=== PATIENT | male | born 1995 | race Asian ===

== ENCOUNTER 2017-06-10 12:44 | Emergency (ER) | payer BC ==
[2017-06-10 16:13] LABS: Hematocrit 45 % (42-52); Hemoglobin 15.7 g/dl (14.0-18.0); Mean Corpuscular HGB Conc 35 g/dl (31-36); Mean Corpuscular Hemoglobin 31 pg (27-31); Mean Corpuscular Volume 89 fL (80-94); Mean Platelet Volume 8 um3 (7.4-10.4); Red Blood Count 5.11 10^6/ul (4.0-5.4); Red Cell Distribution Width 13 % (10.5-15); White Blood Count 6.2 10^3/ul (3.5-10.8)
[2017-06-10 16:29] LABS: ALT 19 U/L (7-52); AST 20 U/L (13-39); Albumin 4.7 g/dL (3.2-5.2); Alkaline Phosphatase 43 U/L (34-104); Anion Gap 10 mmol/L (2-11); BUN/Creatinine Ratio 11.3 (8-20); Blood Urea Nitrogen 11 mg/dL (6-24); CO2 Carbon Dioxide 24 mmol/L (22-32); Calcium 9.7 mg/dL (8.6-10.3); Chloride 102 mmol/L (101-111); EGFR African American 123.3 (>60); EGFR Non-African American 95.9 (>60); Glucose 101 mg/dL (70-100); Potassium 3.7 mmol/L (3.5-5.0); Sodium 136 mmol/L (133-145); Total Protein 7.7 g/dL (6.4-8.9)
[2017-06-10 16:42] LABS: Urine Bilirubin Negative (Negative); Urine Glucose Negative (Negative); Urine Nitrite Negative (Negative)
[2017-06-10 16:46] LABS: Acetaminophen < 15 mcg/mL; Alcohol < 10 mg/dL (<10); Salicylate < 2.50 mg/dL (<30)
--- NOTE | 2017-06-10 16:48 | ED ---
Narda Jaramillo Edward, scribed for Ramila Willis MD on 06/10/17 at 1407 . Psychiatric Complaint - HPI Summary HPI Summary: 21 y/o male presents to ED c/o gradual onset, acute on chronic increased trouble concentrating for the past 3-4 days. Pt states it is hard to pay attention when he goes to class and has trouble writing. He states he is just not studying. Pt drove from [place] to [place] before the start of school, which was a cause for recent stress. Pts father states he has been kind of weird since arriving to [place] for the past few days. Denies SI, HI, hearing voices, and visual hallucinations. Denies physical complaints. In the ED course , the pt hesitates before answering questions; there are long pauses between question and answer. Pts father states that the pt has had church issues; when prompted, the pt mentions a saint that was grilled over a fire. The pt lives with his father in a home here at [place]. The patient is a sophomore at [employer] with a PMHx schizophrenia. Dr. Millard ([place]) has prescribed his medication for more than the past 6 months. Pt has an appointment on with Regina Engle NP (psychiatrist). PMHx glaucoma takes drops once daily ( Xalatan). FHx father with glaucoma. Pt takes Wellbutrin 300 mg once per day. Pt takes Respridol 2 mg at night, 0.5 mg in the morning. Pt has recently been taking vitamin supplements unspecified. NKDA. Occasional EtOH use. Non smoker. Used marijuana in the past. - History Of Current Complaint Chief Complaint: EDMentalHealth Hx Obtained From: Patient, Family/Admin Secretary - Father Onset/Duration: Gradual Onset, Lasting Days Timing: Intermittent Episode Lasting - When he studies Severity Initially: Moderate Severity Currently: Moderate Aggravating Factor(s): Recent Stress - Drive from [place] to [place] Alleviating Factor(s): Nothing Associated Signs And Symptoms: Negative: Hallucinating Related History: Positive For: Prior Psychiatric Issues - PMHx schizophrenia Has Suicidal: Denies: Thoughts Has Homicidal: Denies: Thoughts - Allergies/Home Medications Allergies/Adverse Reactions: Allergies Allergy/AdvReac Type Severity Reaction Status Date / Time No Known Allergies Allergy Verified 04/10/13 18:29 Home Medications: Home Medications Risperidone [Risperdal M-Tab-] 0.5 mg PO QAM 06/10/17 [History Confirmed ] Risperidone [Risperdal] 2 mg PO BEDTIME 06/10/17 [History Confirmed 06/10/17] buPROPion TAB* [Wellbutrin TAB*] 300 mg PO DAILY 06/10/17 [History Confirmed ] PMH/Surg Hx/FS Hx/Imm Hx Previously Healthy: No Opthamlomology History: Reports: Hx Glaucoma Psychiatric History: Reports: Hx Schizophrenia - Surgical History Surgery Procedure, Year, and Place: None Infectious Disease History: Denies: Traveled Outside the [place] in Last 30 Days - Family History Known Family History: Positive: Other - Glaucoma. Denies suicidal attempts in the family - Social History Occupation: Student Lives: With Family Alcohol Use: None Hx Substance Use: Yes Substance Use Type: Reports: Marijuana - in the past Hx Tobacco Use: No Smoking Status (MU): Never Smoked Tobacco Have You Chewed or Dipped Tobacco in the LAST YEAR: No Have You Smoked in the Last Year: No Review of Systems Constitutional: Negative Eyes: Negative ENT: Negative Cardiovascular: Negative Respiratory: Negative Gastrointestinal: Negative Genitourinary: Negative Musculoskeletal: Negative Skin: Negative Neurological: Negative Psychological: Other - Inability to focus All Other Systems Reviewed And Are Negative: Yes Physical Exam Triage Information Reviewed: Yes Vital Signs On Initial Exam: Initial Vitals Temp Pulse Resp BP Pulse Ox 98.1 F 113 16 122/80 98 06/10/17 12:52 06/10/17 12:52 06/10/17 12:52 06/10/17 12:52 06/10/17 12:52 Vital Signs Reviewed: Yes Appearance: Positive: Well-Appearing, No Pain Distress, Well-Nourished Skin: Positive: Warm, Skin Color Reflects Adequate Perfusion Head/Face: Positive: Normal Head/Face Inspection Eyes: Positive: Conjunctiva Clear ENT: Positive: Normal ENT inspection Neck: Positive: Supple Respiratory/Lung Sounds: Positive: Clear to Auscultation, Breath Sounds Present Cardiovascular: Positive: RRR, Pulses are Symmetrical in both Upper and Lower Extremities, Other - Brisk capillary refill Abdomen Description: Positive: Nontender, Soft Bowel Sounds: Positive: Present Musculoskeletal: Positive: Strength/ROM Intact Neurological: Positive: Sensory/Motor Intact, Alert, Oriented to Person Place, Time, Facial Symmetry, Speech Normal Psychiatric: Positive: Normal Diagnostics - Vital Signs Vital Signs Temp Pulse Resp BP Pulse Ox 06/10/17 12:52 98.1 F 113 16 122/80 98 - Laboratory Result Diagrams: 06/10/17 16:02 06/10/17 16:02 Lab Statement: Any lab studies that have been ordered have been reviewed, and results considered in the medical decision making process. Course/Dx - Course Assessment/Plan: 21 y/o male presents to ED c/o gradual onset, acute on chronic increased trouble concentrating for the past 3-4 days. Pt states it is hard to pay attention when he goes to class and has trouble writing. He states he is just not studying. Pt drove from [place] to [place] before the start of school, which was a cause for recent stress. Pts father states he has been kind of weird since arriving to [place] for the past few days. Denies SI, HI, hearing voices, and hallucinations. Denies physical complaints. In the ED course , the pt hesitates before answering questions; there are long pauses between question and answer. Pts father states that the pt has had church issues; when prompted, the pt mentions a saint that was grilled over a fire. The pt lives with his father in a home here at [place]. The patient is a sophomore at [employer] with a PMHx schizophrenia. Dr. Millard ([place]) has prescribed his medication for more than the past 6 months. Pt has an appointment on with Regina Engle NP (psychiatrist). PMHx glaucoma takes drops once daily ( Xalatan). FHx father risk for glaucoma. Pt takes Wellbutrin 300 mg once per day. Pt takes Respridol 2 mg at night, 0.5 mg in the morning. Pt has recently been taking vitamin supplements unspecified. NKDA. Occasional EtOH use. Non smoker. Used marijuana in the past. Pt is medically cleared for MHU evaluation at 16:51. After MH Eval, Dr. Mena determines that pt is a safe discharge for close follow up at [facility]. DC instructions provided by Mental Health provider. - Differential Dx/Clinical Impression Differential Diagnosis/HQI/PQRI: Positive: Acute Psychosis, Anxiety, Schizophrenia Provider Diagnosis: Acute schizophrenic episode, chronic condition with acute exacerbation - Physician Notifications Patient Is Medically Stable For: Psych Evaluation Discharge - Discharge Plan Condition: Stable Disposition: HOME Referrals: [facility] [Primary Care Provider] - Additional Instructions: [address] Call to find out walk-in hours Dr. Max Hoffmann [phone] Call Sunday to review medications The documentation as recorded by the Narda solis Edward accurately reflects the service I personally performed and the decisions made by Lazaro jessica Barbara J, MD.
[2017-06-10 16:55] LABS: TSH (Thyroid Stimulating Horm) 1.66 mcIU/mL (0.34-5.60)
[2017-06-10 17:16] LABS: Benzodiazepine Urine Screen None Detected (None Detect)
== END 2017-06-10 18:00 | disposition home or self-care (01) ==
LOC: ED 12:44
DX: F20.9 Schizophrenia, unspecified (principal)
CPT/HCPCS: 36415; 80053; 80307; 80320; 80329; 81003; 84443; 85025; 99282; G0480